=== PATIENT | female | born 1950 | race Caucasian/White ===

== ENCOUNTER → 2016-07-28 | Outpatient (REF) | payer BC ==
[2016-07-28 11:01] LABS: ALBUMIN 4.1 g/dL (3.4-5.0); TOTAL PROTEIN 5.9 g/dL (6.4-8.5)
== END ==
LOC: LAB 10:09
PROVIDERS: ATTEND Nurse Practitioner Family
DX: E78.2 Mixed hyperlipidemia (principal); E03.4 Atrophy of thyroid (acquired)
CPT/HCPCS: 80061; 80076; 84443

== ENCOUNTER → 2016-09-23 | Outpatient (CLI) | payer BC | LOC: LAB 08:16 | PROVIDERS: ATTEND Nurse Practitioner Family | DX: E03.4 Atrophy of thyroid (acquired) (principal) | CPT/HCPCS: 36415; 84443 ==